=== PATIENT | male | born 1950 | race African-American/Black ===

== ENCOUNTER 2024-05-16 00:10 | Inpatient (IN) | payer OTHER ==
[2024-05-16] MEDS ORDERED: Ibuprofen 200 MG TAB ONE (00:57)
[2024-05-16 01:50] LABS: #Basophils 0.02 10x3/uL (0.0-0.2); #Eosinophils 0.14 10x3/uL (0.0-0.5); #Monocytes 0.63 10x3/uL (0.0-1.1); #Neutrophils 7.27 10x3/uL (1.5-8.4); %Basophils 0.2 % (0.0-2.0); %Eosinophils 1.6 % (0.0-6.0); %Lymphocytes 8.5 % (18.0-47.0); %Monocytes 7.1 % (0.0-10.0); %Neutrophils 82.1 % (40.0-75.0); Hematocrit 42.7 % (38.8-50.0); Hemoglobin 13.2 g/dL (13.5-17.5); Mean Corpuscular HGB CONC 30.9 g/dL (32.0-36.0); Mean Corpuscular Hemoglobin 22.8 pg (27.0-33.0); Mean Corpuscular Volume 73.7 fL (81.2-95.1); Mean Platelet Volume 10.2 fL (7.4-10.4); Platelet Count 173 10x3/uL (150-450); RBC Distribution Width 17.5 % (11.5-14.5); Red Blood Cell (RBC) Count 5.79 10x6/uL (4.32-5.72); White Blood Cell (WBC) Count 8.9 10x3/uL (3.5-10.5)
[2024-05-16 02:07] LABS: ALT (SGPT) 12 U/L (8-55); AST (SGOT) 14 U/L (5-34); Albumin 4.1 g/dL (3.4-4.8); Alkaline Phosphatase 58 U/L (40-110); Anion Gap 18 mmol/L (10-20); BUN (Urea Nitrogen) 27 mg/dL (8.4-25.7); Bilirubin, Total 0.9 mg/dL (0.2-1.2); Calc. Creatinine Clearance 0 mL/min (70-130); Calcium 9.5 mg/dL (7.8-10.44); Carbon Dioxide 19 mmol/L (23-31); Chloride 108 mmol/L (98-107); Estimated GFR 36; Glucose 132 mg/dL (83-110); Potassium 4.4 mmol/L (3.5-5.1); Protein, Total 8.1 g/dL (5.8-8.1); Sodium 141 mmol/L (136-145)
[2024-05-16 02:34] LABS: Anisocytosis SLIGHT = 6-15 cells (100X) (0-5/hpf); Hypochromia SLIGHT = 6-15 cells (100X) (0-5/hpf); Microcytosis SLIGHT = 6-15 cells (100X) (0-5/hpf)
[2024-05-16 02:35] LABS: Platelet Adequacy Comment Appears Adequate
[2024-05-16 10:21] VITALS: BMI 30.5
[2024-05-16] MEDS ORDERED: Dextrose 5% in Water 1,000 ML IV PRN (10:26)
[2024-05-16] MEDS ORDERED: Dextrose 50% Abboject 50 ML SYRINGE SLOW IVP PRN (10:26)
[2024-05-16] MEDS ORDERED: Insulin Lispro 100 UNIT/ML 10 ML VIAL SC PRN (10:26)
[2024-05-16] MEDS ORDERED: hydrALAZINE 20 MG/ML VIAL SLOW IVP PRN (10:26)
[2024-05-16] MEDS ORDERED: Glucagon 1 MG/ML KIT IM PRN (10:26)
[2024-05-16] MEDS ORDERED: Albuterol 2.5 MG (3 mL) NEB NEB PRN (10:33)
[2024-05-16] MEDS ORDERED: Morphine 2 MG/ML VIAL SLOW IVP PRN (11:45)
[2024-05-16] MEDS ORDERED: Morphine 4 MG/ML VIAL SLOW IVP PRN (11:45)
[2024-05-16] MEDS ORDERED: diphenhydrAMINE 25 MG CAP PO PRN (12:00)
[2024-05-16] MEDS: Lactated Ringer's 1,000 ML IV SCH (12:36)
[2024-05-16] MEDS: Sodium Chloride 0.45% 1,000 ML IV SCH (12:37)
[2024-05-16] MEDS: FLU (Fluad Triv) TS24-25 (65UP)/MF59C/PF 45 MCG/0.5 ML Syringe IM ONE (15:23)
[2024-05-16] MEDS: metFORMIN 500 MG TAB PO SCH (16:36)
[2024-05-16] MEDS: Enoxaparin 30 MG (0.3 mL) SYRINGE SC SCH (20:52)
[2024-05-16] MEDS: Carvedilol 12.5 MG TAB PO SCH (20:53)
[2024-05-16] MEDS: Terazosin HCl 1 MG CAP PO SCH (20:53)
[2024-05-16] MEDS ORDERED: Non-Formulary Medication 1 EACH (Dolutegravir Sodium [Tivicay] 50 MG Tablet) PO SCH (21:00)
[2024-05-17] MEDS: Clotrimazole 1% Cream 15 GM TUBE TOP SCH (01:19)
[2024-05-17 04:09] LABS: ALT (SGPT) 12 U/L (8-55); AST (SGOT) 31 U/L (5-34); Albumin 3.4 g/dL (3.4-4.8); Alkaline Phosphatase 45 U/L (40-110); Anion Gap 15 mmol/L (10-20); BUN (Urea Nitrogen) 24 mg/dL (8.4-25.7); Bilirubin, Total 0.5 mg/dL (0.2-1.2); Calc. Creatinine Clearance 78 mL/min (70-130); Calcium 8.3 mg/dL (7.8-10.44); Carbon Dioxide 19 mmol/L (23-31); Chloride 109 mmol/L (98-107); Estimated GFR 62; Globulin 3.6 g/dL (2.4-3.5); Glucose 97 mg/dL (83-110); Potassium 3.7 mmol/L (3.5-5.1); Sodium 139 mmol/L (136-145)
[2024-05-17] MEDS: Aripiprazole 10 MG TAB PO SCH (09:30)
[2024-05-17] MEDS: Aspirin 81 mg Enteric Coated Tablet PO SCH (09:31)
[2024-05-17] MEDS: Lisinopril 20 MG TAB PO SCH (09:31)
[2024-05-17] MEDS: Amlodipine 5 MG TAB PO SCH (09:33)
[2024-05-17] MEDS: Venlafaxine HCl XR 75 MG CAP PO SCH (09:34)
[2024-05-17 16:53] LABS: Hemoglobin A1c 6.2 % (4.0-6.0)
[2024-05-18 01:31] LABS: Campy jejuni + coli by PCR Negative (Negative); STEC Shiga Toxin 1+2 Negative (Negative); Salmonella spp. by PCR Negative (Negative); Shigella spp + EIEC by PCR Negative (Negative)
[2024-05-18 04:03] LABS: ALT (SGPT) 10 U/L (8-55); AST (SGOT) 28 U/L (5-34); Albumin 3.2 g/dL (3.4-4.8); Alkaline Phosphatase 45 U/L (40-110); Anion Gap 13 mmol/L (10-20); BUN (Urea Nitrogen) 17 mg/dL (8.4-25.7); Bilirubin, Total 0.4 mg/dL (0.2-1.2); Calc. Creatinine Clearance 99 mL/min (70-130); Calcium 8.3 mg/dL (7.8-10.44); Carbon Dioxide 17 mmol/L (23-31); Chloride 112 mmol/L (98-107); Estimated GFR 83; Globulin 3.2 g/dL (2.4-3.5); Glucose 91 mg/dL (83-110); Potassium 3.4 mmol/L (3.5-5.1); Protein, Total 6.4 g/dL (5.8-8.1); Sodium 139 mmol/L (136-145)
[2024-05-18] MEDS: Potassium Chloride 20 MEQ TAB PO SCH ×2 (10:12→12:43)
[2024-05-18 12:39] VITALS: BP 145/72; TEMP 98.2
== END 2024-05-18 14:00 | disposition home or self-care (01) | DRG 392 ==
LOC: CSHERS 00:10 → EEVIPCON 00:10 → CSHTELE 06:48
PROVIDERS: ADMIT Specialist; ATTEND Specialist
DX: K52.9 Noninfective gastroenteritis and colitis, unspecified (principal); N17.9 Acute kidney failure, unspecified; I10 Essential (primary) hypertension; E11.40 Type 2 diabetes mellitus with diabetic neuropathy, unspecified; F17.210 Nicotine dependence, cigarettes, uncomplicated; J44.9 Chronic obstructive pulmonary disease, unspecified; K40.90 Unilateral inguinal hernia, without obstruction or gangrene, not specified as recurrent; E87.6 Hypokalemia; E86.0 Dehydration; Z93.3 Colostomy status; Z79.899 Other long term (current) drug therapy
CPT/HCPCS: 36415; 36416; 74176; 76705; 80053; 83036; 83605; 83630; 85025; 87324; 87428; 87449; 87505; 94762; 96360; 96361; J1650; J7120

== ENCOUNTER 2025-02-17 12:14 | Emergency (ER) | payer OTHER ==
[2025-02-17] MEDS ORDERED: NOREPINEPHRINE 8 MG/250 ML-D5W 250 ML ONE (12:22)
[2025-02-17 13:00] LABS: #Basophils 0.05 10x3/uL (0.0-0.2); #Eosinophils 0.11 10x3/uL (0.0-0.5); #Monocytes 0.59 10x3/uL (0.0-1.1); #Neutrophils 4.14 10x3/uL (1.5-8.4); %Basophils 0.8 % (0.0-2.0); %Eosinophils 1.8 % (0.0-6.0); %Lymphocytes 17.5 % (18.0-47.0); %Monocytes 9.9 % (0.0-10.0); %Neutrophils 69.7 % (40.0-75.0); Hematocrit 23.0 % (38.8-50.0); Hemoglobin 7.3 g/dL (13.5-17.5); Mean Corpuscular Hemoglobin 21.3 pg (27.0-33.0); Mean Corpuscular Volume 67.1 fL (81.2-95.1); Platelet Count 266 10x3/uL (150-450); Red Blood Cell (RBC) Count 3.43 10x6/uL (4.32-5.72); White Blood Cell (WBC) Count 5.95 10x3/uL (3.5-10.5)
[2025-02-17 13:13] LABS: INR-International Normal Ratio 1.3; PTT 31.6 sec (22.0-33.0); Prothrombin Time 14.0 sec (9.5-12.1)
[2025-02-17 13:19] LABS: ALT (SGPT) 11 U/L (Less than 45); AST (SGOT) 27 U/L (11-34); Albumin 2.4 g/dL (3.1-4.5); Alkaline Phosphatase 81 U/L (40-110); Anion Gap 17 mmol/L (10-20); BUN (Urea Nitrogen) 75 mg/dL (8.4-25.7); Bilirubin, Total 1.1 mg/dL (0.3-1.2); Calc. Creatinine Clearance 0 mL/min (70-130); Calcium 8.3 mg/dL (7.8-10.44); Carbon Dioxide 20 mmol/L (23-31); Chloride 98 mmol/L (98-107); Globulin 4.7 g/dL (2.4-3.5); Glucose 77 mg/dL (83-110); Lipase 63 U/L (8-78); Magnesium 2.1 mg/dL (1.6-2.6); Potassium 4.9 mmol/L (3.5-5.1); Sodium 130 mmol/L (136-145)
[2025-02-17 13:22] LABS: Troponin I 0.033 ng/mL (< 0.028)
[2025-02-17] MEDS ORDERED: VANCOMYCIN 2 GRAM/400 ML BAG 2 GM in Premix 1 BAG IVPB SCH (13:45)
[2025-02-17 13:48] LABS: Anisocytosis SLIGHT = 6-15 cells (100X) (0-5/hpf); Macrocytosis SLIGHT = 6-15 cells (100X) (0-5/hpf); Microcytosis SLIGHT = 6-15 cells (100X) (0-5/hpf); Ovalocytes SLIGHT = 2-5 cells (100X) (0-1/hpf); Platelet Adequacy Comment Appears Adequate; Polychromasia SLIGHT = 2-3 cells (100X) (0-2/hpf); Target Cells SLIGHT = 2-5 cells (100X) (0-1/hpf)
[2025-02-17] MEDS ORDERED: Hydrocortisone Sod Succ/PF 100 mg/2 ml Vial ONE (16:32)
[2025-02-17] MEDS ORDERED: Furosemide 40 MG (4 mL) VIAL ONE (16:47)
== END 2025-02-17 20:18 | disposition short-term general hospital (02) ==
LOC: CSHERS 12:14 → EEVIPCON 12:14 → CSHERS 20:18
DX: A41.9 Sepsis, unspecified organism (principal); I31.39 Other pericardial effusion (noninflammatory); R65.21 Severe sepsis with septic shock; N17.9 Acute kidney failure, unspecified; J90 Pleural effusion, not elsewhere classified; R00.0 Tachycardia, unspecified; B20 Human immunodeficiency virus [HIV] disease; J44.9 Chronic obstructive pulmonary disease, unspecified; I48.91 Unspecified atrial fibrillation; E11.40 Type 2 diabetes mellitus with diabetic neuropathy, unspecified; E11.9 Type 2 diabetes mellitus without complications; I10 Essential (primary) hypertension; Z87.891 Personal history of nicotine dependence; Z55.6 Problems related to health literacy
CPT/HCPCS: 36415; 36556; 70450; 71045; 71250; 74177; 80053; 83605; 83690; 83735; 83880; 84484; 85025; 85610; 85730; 87040; 93005; 94760; 96361; 96365; 96366; 96367; 96374; 96375; J1720; J1940; J2543; J3375; P9047